=== PATIENT | male | born 1995 | race Native Hawaiian/Other Pacific Islander ===

== ENCOUNTER 2021-09-25 02:10 | Emergency (ER) | payer OTHER ==
[~2021-09-25] VITALS: Ht 177.8 cm; Wt 77.1 kg
[2021-09-25 02:45] VITALS: BP 137/86; TEMP 97.9
== END 2021-09-25 02:45 ==
LOC: ED 02:10
DX: Z02.89 Encounter for other administrative examinations (principal); R82.5 Elevated urine levels of drugs, medicaments and biological substances
CPT/HCPCS: 80307; 99282